=== PATIENT | female | born 1945 | race Caucasian/White ===

== ENCOUNTER 2019-01-05 12:04 | Day surgery (SDC) | payer MEDICARE, OTHER ==
[~2019-01-05] VITALS: Ht 160 cm; Wt 95.9 kg
[~2019-01-05 12:04] MED LIST: Apple Cider Vi300 MG PO; ERGO400; FLAX OIL1000 MG PO; ISODIN20 PO; METF500 PO; METO50 PO; ZESTORETIC 20-121 EA PO
== END 2019-01-05 14:15 | disposition home or self-care (01) ==
LOC: ORSCSDS 12:04
PROVIDERS: Surgery
PROC: 0DBN8ZX Excision of Sigmoid Colon, Via Natural or Artificial Opening Endoscopic, Diagnostic (ICD-10-PCS; principal; 2019-01-05 13:30)
DX: Z12.11 Encounter for screening for malignant neoplasm of colon (principal); D12.5 Benign neoplasm of sigmoid colon; Z86.010 Personal history of colon polyps; I10 Essential (primary) hypertension; E11.9 Type 2 diabetes mellitus without complications; E66.01 Morbid (severe) obesity due to excess calories; Z68.39 Body mass index [BMI] 39.0-39.9, adult; Z87.891 Personal history of nicotine dependence; Z79.84 Long term (current) use of oral hypoglycemic drugs; Z79.899 Other long term (current) drug therapy
CPT/HCPCS: 82947; 88305; J2704; J7120

== ENCOUNTER 2020-06-04 06:09 | Day surgery (SDC) | payer MEDICARE, OTHER ==
[~2020-06-04] VITALS: Ht 160 cm; Wt 95.5 kg
[~2020-06-04 06:09] MED LIST changes: +ASPI81CH PO; +Acetaminophen325 M1 PO; -ERGO400; +ERGO400 PO; +ZINC15 PO
--- NOTE | 2020-06-04 07:07 | NUR ---
Ambulatory in Day Surgery History, Chart, Medications and Allergies reviewed before start of procedure. Lungs clear T/O to Auscultation. Lungs clear T/O to Auscultation. Pre-Op teaching done. Pt verbalizes understanding. Patient reports completing Chlorhexadine shower X5 prior to admission to hospital.
--- NOTE | 2020-06-04 14:38 | NUR ---
arrival to unit pt arrived to unit at approx 1030. pt denied pain or nausea. she was aa0x4 but reported being sleepy. pt was on 2L on arrival titrated to room air quickly sats greater than 94%. put has been up and voiding tolerates transfer well. eating meals. dressing cdi, polar moira in place.
--- NOTE | 2020-06-04 16:28 | NUR ---
SHIFT SUMMARY S/P L TKA [id number], PAIN TOLERABLE DURING SHIFT. PT UP TO BS AND HAS VOIDED. TOLERATING PO WELL, NO NAUSEA. PT WORKED WITH PHYSICAL THERAPY TODAY. POLAR KEN ON DURING SHIFT. PT USING WALKER AND FOLLOWING PRECAUTIONS WELL. PLAN IS TO WORK WITH PHYSICAL THERAPY TOMORROW AND POSSIBLY DISCHARGE TOMORROW.
[2020-06-05 05:21] LABS: BASOPHILS ABSOLUTE AUTO 0.02 K/mm3 (0.00-0.23); BASOPHILS PERCENT AUTO 0 % (0-2); EOSINOPHILS ABSOLUTE AUTO 0.02 K/mm3 (0.00-0.68); EOSINOPHILS PERCENT AUTO 0 % (0-6); Hematocrit 35.6 % (33.0-51.0); Hemoglobin 11.9 g/dL (11.5-16.0); IMMATURE GRAN ABSOLUTE AUTO 0.06 K/mm3 (0.00-0.10); IMMATURE GRAN PERCENT AUTO 1 % (0-1); LYMPHOCYTES ABSOLUTE AUTO 1.65 K/mm3 (0.84-5.20); LYMPHOCYTES PERCENT AUTO 13 % (21-46); MONOCYTES ABSOLUTE AUTO 0.87 K/mm3 (0.16-1.47); MONOCYTES PERCENT AUTO 7 % (4-13); Mean Corpuscular HGB 28.5 pg (26.0-34.0); Mean Corpuscular HGB Conc 33.4 g/dL (31.5-36.5); Mean Corpuscular Volume 85 fL (80-100); Mean Platelet Volume 9.1 fL (9.1-12.4); NEUTROPHILS ABSOLUTE AUTO 10.18 K/mm3 (1.96-9.15); NEUTROPHILS PERCENT AUTO 79 % (41-73); Platelet Count 242 K/mm3 (150-400); RDW Coefficient Variation 12.9 % (11.7-14.2); RDW Standard Deviation 39.4 fL (35.1-46.3); Red Blood Cell Count 4.18 M/mm3 (3.80-5.20)
[2020-06-05 06:10] LABS: Anion Gap 10 mmol/L (6-16); Blood Urea Nitrogen 17 mg/dL (8-24); Bun/Creatinine Ratio 26.3 (12.0-20.0); CO2, Blood 24 mmol/L (21-32); Calcium, Blood 8.9 mg/dL (8.5-10.1); Chloride, Blood 97 mmol/L (98-108); Creatinine, Blood 0.65 mg/dL (0.40-1.00); Glomerular Filtration Rate >60 (60-); Glucose, Blood 139 mg/dL (70-99); Potassium, Blood 3.9 mmol/L (3.5-5.5); Sodium, Blood 131 mmol/L (136-145)
[2020-06-05] MEDS ORDERED: Percocet 5-3251 EACH PO (08:01)
[2020-06-05] MEDS ORDERED: XARELTO10 M4 PO (08:02)
--- NOTE | 2020-06-05 08:06 | NUR ---
SUMMARY POD #1 LEFT TKA. AUQUCEL DRSG C/D/I, CIRC WNL, PAIN MANAGED WITH 1 5 MG OXY, TYLENOL & TORADOL. PT IS TOLERATING PO INTAKE, VOIDING WNL. 1 ASSIST USING FWW. PT SLEPT IN [place]. CALL LIGHT IN REACH. REPORT GIVEN TO DAY RN
--- NOTE | 2020-06-05 11:14 | NUR ---
Upon receiving an admit referral for spiritual care. I visit patient. Patient is sitting on a chair and alert. Patient talks about her surgery, her family, her heritage, her protestant beliefs and her 's dementia. Patient talks about her concerns for her family and especially her because he had to be placed in a memory facility while the patient recovers from surgery. I normalize patient's concerns, reinforce helpful attitudes and practices and provide therapeutic listening and spiritual guidance. Pateint reponds well and shows signs of reduced stress.
--- NOTE | 2020-06-05 11:47 | NUR ---
DISCHARGE PT WAS PROVIDED WITH WRITTEN AND VERBAL DISCHARGE INSTRUCTIONS; SHE REPORTED UNDERSTANDING. PT MEETING ALL GOALS PRIOR TO DISCHARGE, PT ABLE TO VOID, TOLERATING PO, PAIN MANAGED AND PT CLEARED THERAPY. PT ASSISTED OUT IN W/C AT 1139. VSS.
== END 2020-06-05 11:41 | disposition home or self-care (01) ==
LOC: ORD 06:09 → ORSCMMR 06:09 → ORD 07:30 → SURS 10:26 → ORSCMMR 10:26 → SURS 14:02 → ORSCMMR 06-05 11:41 → ORD 06-05 11:41
PROVIDERS: Orthopaedic Surgery
PROC: 0SRD0JA Replacement of Left Knee Joint with Synthetic Substitute, Uncemented, Open Approach (ICD-10-PCS; principal; 2020-06-04 07:30)
DX: M17.12 Unilateral primary osteoarthritis, left knee (principal); E11.9 Type 2 diabetes mellitus without complications; I10 Essential (primary) hypertension; E66.01 Morbid (severe) obesity due to excess calories; Z68.37 Body mass index [BMI] 37.0-37.9, adult; Z87.891 Personal history of nicotine dependence; Z79.82 Long term (current) use of aspirin; Z79.84 Long term (current) use of oral hypoglycemic drugs
CPT/HCPCS: 36415; 73560-LT; 80048; 82947; 85025; 88300; 97110; 97116; 97162; 97530; A9270; C1776; J0171; J0690; J0735; J1100; J1815; J1885; J2250; J2405; J2704; J2765; J2795; J3010; J7120

== ENCOUNTER → 2022-07-30 | Outpatient (CLI) | payer MEDICARE, OTHER ==
[~2022-07-30] MED LIST changes: +Percocet 5-3251 EACH PO; +XARELTO10 M4 PO
[2022-07-30 10:17] LABS: BASOPHILS ABSOLUTE AUTO 0.03 K/mm3 (0.00-0.23); BASOPHILS PERCENT AUTO 0 % (0-2); EOSINOPHILS ABSOLUTE AUTO 0.11 K/mm3 (0.00-0.68); EOSINOPHILS PERCENT AUTO 2 % (0-6); Hematocrit 47.5 % (33.0-51.0); IMMATURE GRAN ABSOLUTE AUTO 0.03 K/mm3 (0.00-0.10); IMMATURE GRAN PERCENT AUTO 0 % (0-1); LYMPHOCYTES PERCENT AUTO 28 % (21-46); MONOCYTES ABSOLUTE AUTO 0.61 K/mm3 (0.16-1.47); MONOCYTES PERCENT AUTO 9 % (4-13); Mean Corpuscular HGB 28.3 pg (26.0-34.0); Mean Corpuscular HGB Conc 33.7 g/dL (31.5-36.5); Mean Corpuscular Volume 84 fL (80-100); Mean Platelet Volume 8.6 fL (9.1-12.4); NEUTROPHILS ABSOLUTE AUTO 4.18 K/mm3 (1.96-9.15); NEUTROPHILS PERCENT AUTO 61 % (41-73); Platelet Count 307 K/mm3 (150-400); RDW Coefficient Variation 13.8 % (11.7-14.2); RDW Standard Deviation 42.2 fL (35.1-46.3); Red Blood Cell Count 5.65 M/mm3 (3.80-5.20); White Blood Cell Count 6.86 K/mm3 (4.00-11.30)
[2022-07-30 10:38] LABS: Albumin, Blood 3.9 g/dL (3.4-5.0); Bilirubin, Total 0.6 mg/dL (0.1-1.0); Bun/Creatinine Ratio 14.1 (12.0-20.0); Calcium, Blood 9.7 mg/dL (8.5-10.1); Creatinine, Blood 0.78 mg/dL (0.40-1.00); Globulin, Blood 4.1 g/dL (2.2-4.0); Potassium, Blood 3.4 mmol/L (3.5-5.5); Thyroid Stimulating Hormone 1.232 uIU/mL (0.360-4.800)
== END | disposition home or self-care (01) ==
LOC: LAB SHORT 10:13
PROVIDERS: Physician Assistant
DX: R00.2 Palpitations (principal); R07.89 Other chest pain; R82.79 Other abnormal findings on microbiological examination of urine
CPT/HCPCS: 80053; 84443; 84484; 85025; 87086

== ENCOUNTER → 2023-03-16 | Outpatient (CLI) | payer MEDICARE, OTHER | LOC: PLD 15:02 → LAB SHORT 15:02 | DX: D48.5 Neoplasm of uncertain behavior of skin (principal) | CPT/HCPCS: 88305 ==

== ENCOUNTER → 2023-04-09 | Outpatient (CLI) | payer MEDICARE, OTHER | END | disposition home or self-care (01) | LOC: LAB SHORT 17:39 → LAB 17:39 | DX: N39.0 Urinary tract infection, site not specified (principal) | CPT/HCPCS: 87086 ==

== ENCOUNTER → 2023-09-21 | Outpatient (CLI) | payer MEDICARE ==
[2023-09-21 14:04] LABS: Protein, Urine Quantitative 9.7 mg/dL (0.0-11.9)
[2023-09-21 14:07] LABS: Microalbumin, Urine Quant. 7.51 mg/L (0.000-20.000)
== END | disposition home or self-care (01) ==
LOC: LAB SHORT 10:38 → LAB 10:38 → LAB FUT 09-14 16:40
PROVIDERS: Internal Medicine Nephrology
DX: N18.1 Chronic kidney disease, stage 1 (principal); D63.1 Anemia in chronic kidney disease; N25.81 Secondary hyperparathyroidism of renal origin; E55.9 Vitamin D deficiency, unspecified; E78.00 Pure hypercholesterolemia, unspecified; D51.8 Other vitamin B12 deficiency anemias; D50.9 Iron deficiency anemia, unspecified; D52.8 Other folate deficiency anemias; R94.5 Abnormal results of liver function studies; R94.6 Abnormal results of thyroid function studies; R76.9 Abnormal immunological finding in serum, unspecified
CPT/HCPCS: 81050; 82043; 84156; 84300

== ENCOUNTER 2024-04-28 11:32 | Day surgery (SDC) | payer MEDICARE, OTHER ==
[2024-04-28] VITALS (14 sets, daily range): BP systolic 109–147; BP diastolic 56–84
[~2024-04-28] VITALS: Ht 160 cm; Wt 88.5 kg
[~2024-04-28 11:32] MED LIST changes: +AMLO5 PO; +ASPIR 8181 M1 PO; +CeFAZolin Sodium 2,000 MG in NS 100 ML IV SCH; -ERGO400 PO; +FISH OIL 1,0001 EA10; +Indocyanine Green 25 MG Vial IV SCH; +JARDIANCE25 MG PO; +Lactated Ringer's 1,000 ML IV SCH; +Vitamin B-12100 MCG; +Vitamin D1000 UNI1 PO
[2024-04-28] MEDS ORDERED: Acetaminophen325 M1 PO (12:35)
[2024-04-28] MEDS ORDERED: propofoL 20 ML IV ONE (13:21)
[2024-04-28] MEDS ORDERED: FentaNYL Citrate 50 MCG/ML 2 ML Injection ONE ×2 (13:21→15:56)
--- NOTE | 2024-04-28 13:43 | NUR ---
JENARO JONES RN, RESUMING CARE OF PATIENT. REPORT GIVEN.
[2024-04-28] MEDS ORDERED: Bupivacaine 0.5% HCl 5 MG/ML 30MLVIAL ONE (13:52)
--- NOTE | 2024-04-28 14:00 | NUR ---
History, Chart, Medications and Allergies reviewed before start of procedure. Lungs clear T/O to Auscultation. Patient confirms NPO status and agrees with scheduled surgery. Pre-Op teaching done. Pt verbalizes understanding. Patient States Post-Procedure ride home has been arranged. PT BELONGINGS PLACED UNDERNEATH GURNEY FOR SAFEKEEPING. PT GLASSES, DENTURES AND HEARING AIDS TAKEN TO PACU FOR SAFEKEEPING.
[2024-04-28] MEDS ORDERED: Rocuronium Bromide 10 MG/ML 5ML Injection IV ONE (14:13)
[2024-04-28] MEDS ORDERED: Phenylephrine HCl 100 MCG/ML-NS 10MLSYR (1MG/10ML) ONE (14:14)
[2024-04-28] MEDS ORDERED: Ondansetron HCl 2 MG / ML 2ML Vial ONE (14:26)
[2024-04-28] MEDS ORDERED: Dexamethasone Sod Phos 10 MG/ML 1ML VIAL ONE (14:26)
[2024-04-28] MEDS ORDERED: Glycopyrrolate 0.2 MG/ML 5ML VIAL ONE (14:57)
[2024-04-28] MEDS ORDERED: Sugammadex Sodium 200 MG/2ML SDV (100 MG/ML) ONE (15:09)
[2024-04-28] MEDS ORDERED: HYDROcodone 5-APAP 325 TAB PO PRN (15:30)
--- NOTE | 2024-04-28 17:30 | NUR ---
Patient up to Ambulate independently. Gait steady. Discharge instructions reviewed with patient. Patient verbalizes understanding. Copy given to patient to take home. Discharged via wheelchair to private car for ride home. PT HAS 4 SITES WITH SURGICAL GLUE CLEAN AND INTACT, DC INSTRUCTIONS TO PT AND SON, ICE PACK GIVEN PT PAIN MUCH BETTER AFTER PO [place] TOLERATING PO FLUIDS AND FOOD
== END 2024-04-28 17:30 | disposition home or self-care (01) ==
LOC: ORSCMMR 11:32 → ORD 13:00 → ORSCMMR 13:00
PROVIDERS: Surgery
PROC: 0FT44ZZ Resection of Gallbladder, Percutaneous Endoscopic Approach (ICD-10-PCS; principal; 2024-04-28 13:00)
PROC: 8E0W4CZ Robotic Assisted Procedure of Trunk Region, Percutaneous Endoscopic Approach (ICD-10-PCS; principal; 2024-04-28 13:00)
DX: K80.10 Calculus of gallbladder with chronic cholecystitis without obstruction (principal); I12.9 Hypertensive chronic kidney disease with stage 1 through stage 4 chronic kidney disease, or unspecified chronic kidney disease; E11.22 Type 2 diabetes mellitus with diabetic chronic kidney disease; N18.9 Chronic kidney disease, unspecified; Z79.85 Long-term (current) use of injectable non-insulin antidiabetic drugs; Z79.84 Long term (current) use of oral hypoglycemic drugs; Z79.899 Other long term (current) drug therapy; Z79.82 Long term (current) use of aspirin
CPT/HCPCS: 82947; 88304; A9270; J0690; J1100; J2371; J2405; J2704; J3010; J7120